=== PATIENT | female | born 1935 | race Asian ===

== ENCOUNTER 2022-06-10 10:10 | Inpatient (IN) | payer MEDICARE ==
[~2022-06-10] VITALS: Ht 162.6 cm; Wt 51.0 kg
[2022-06-10] MEDS ORDERED: DEXAMETHASONE SOD PHOS 4 MG/ML VIAL IVP ONE (10:15)
[2022-06-10] MEDS ORDERED: ALBUTEROL SULFATE 5 MG/ML 20 ML NEB SOLN [BULK] NEB ONE (10:15)
[2022-06-10] MEDS ORDERED: IPRATROPIUM BROMIDE 0.5 MG/2.5 ML NEB SOLUTION NEB ONE (10:15)
[2022-06-10 10:36] LABS: ABG BASE EXCESS -1.9 mmol/L (-2.0-3.0); ABG CARBOXYHEMOGLOBIN 0.1 % (0.0-1.5); ABG HCO3 22.5 mmol/L (22.0-26.0); ABG METHEMOGLOBIN 0.1 % (0.0-1.5); ABG OXYGEN CONTENT 16.6 mL/dL (15.0-23.0); ABG OXYGEN SATURATION 96.8 % (95.0-98.0); ABG OXYHEMOGLOBIN 96.6 % (94.0-100.0); ABG PCO2 51 mmHg (35-45); ABG TOTAL HEMOGLOBIN 12.1 G/dL (12.0-18.0); O2 DEVICE,BLOOD GAS AEROSOL MASK (ROOM AIR); PO2, ARTERIAL BG 99.5 mmHg (71.0-79.0); SITE, BLOOD GAS RT BRACHIAL; SOURCE, BLOOD GAS ARTERIAL
[2022-06-10] MEDS ORDERED: ALBUTEROL SULFATE 2.5 MG/0.5 ML NEB SOLUTION NEB ONE (10:45)
[2022-06-10 11:06] LABS: BASOPHILS % (AUTO) 0.6 % (0.0-2.0); EOSINOPHILS % (AUTO) 0 % (1.0-6.0); HEMATOCRIT 35.7 % (36-46); HEMOGLOBIN 11.4 g/dL (12.0-16.0); LYMPHOCYTES # (AUTO) 0.6 K/uL (1.0-4.8); MEAN CORPUSCULAR HEMOGLOBIN 28.7 pg (26.0-34.0); MEAN CORPUSCULAR VOLUME 89 fL (80-100); MONOCYTES # (AUTO) 0.3 K/uL (0.1-1.0); MONOCYTES % (AUTO) 4.9 % (2.0-9.0); NEUTROPHILS # (AUTO) 5.2 K/uL (1.8-7.7); NEUTROPHILS % (AUTO) 84.5 % (40.0-70.0); PLATELET COUNT (AUTO) 185 K/uL (150-450); RED BLOOD CELL COUNT(AUTO) 3.99 MIL/uL (4.00-5.20); RED CELL DISTRIBUTION WIDTH 14.6 % (11.5-14.5)
[2022-06-10 11:15] LABS: COVID AG,FIA SOURCE NASOPHARYNGEAL
[2022-06-10] MEDS ORDERED: AZITHROMYCIN 500 MG/NS 250 ML IV ONE (11:15)
[2022-06-10] MEDS ORDERED: CefTRIAXone 1 GM/DEXTROSE 50 ML IV ONE (11:15)
[2022-06-10 11:20] LABS: INR 1.1 (0.9-1.1); PROTHROMBIN TIME 11.4 SEC (9.4-11.6)
[2022-06-10 11:42] LABS: INFLUENZA TYPE B NEGATIVE FOR TYPE B (NEGATIVE)
[2022-06-10] MEDS ORDERED: FUROSEMIDE 20 MG/2 ML VIAL IVP ONE (12:45)
[2022-06-10] MEDS ORDERED: HEPARIN SODIUM 25000 UNITS/D5W 250 ML IV PRN (13:15)
[2022-06-10] MEDS ORDERED: HEPARIN SODIUM,PORCINE 5,000 UNITS/ML VIAL IVP PRN ×2 (13:15)
[2022-06-10 13:58] LABS: ABG BASE EXCESS -8.3 mmol/L (-2.0-3.0); ABG CARBOXYHEMOGLOBIN 0.1 % (0.0-1.5); ABG HCO3 18.2 mmol/L (22.0-26.0); ABG OXYGEN CONTENT 15.1 mL/dL (15.0-23.0); ABG OXYHEMOGLOBIN 89.9 % (94.0-100.0); ABG PCO2 36 mmHg (35-45); ABG PH 7.311 (7.35-7.450); ABG TOTAL HEMOGLOBIN 11.9 G/dL (12.0-18.0); PO2, ARTERIAL BG 62.9 mmHg (71.0-79.0); SOURCE, BLOOD GAS ARTERIAL
[2022-06-10 13:59] LABS: ABG A-A DIFF O2 325.3 mmHg (10-20.0); O2 DEVICE,BLOOD GAS HFNC (ROOM AIR); SITE, BLOOD GAS LFT BRACHIAL
[2022-06-10] MEDS ORDERED: ACETAMINOPHEN 325 MG TABLET PO PRN ×2 (14:00→15:15)
[2022-06-10] MEDS ORDERED: 0.9% SODIUM CHLORIDE 10 ML SYRINGE IVP PRN (14:00)
[2022-06-10 14:24] LABS: CALCIUM, TOTAL 9.9 mg/dL (8.8-10.5); CREATININE 2.7 mg/dL (0.60-1.30); POTASSIUM 4.3 mmol/L (3.5-5.1)
[2022-06-10 14:30] LABS: ALBUMIN 3.4 g/dL (3.4-5.0); TOTAL PROTEIN, SERUM 7.8 g/dL (6.4-8.2)
[2022-06-10 14:31] LABS: BILIRUBIN,TOTAL 0.2 mg/dL (0.1-1.0)
[2022-06-10 14:34] LABS: INFLUENZA TYPE A POSITIVE FOR TYPE A (NEGATIVE)
[2022-06-10 15:06] LABS: MAGNESIUM 2.3 mg/dL (1.80-2.40); PHOSPHORUS 5.4 mg/dL (2.5-4.9)
[2022-06-10] MEDS ORDERED: BISACODYL 10 MG RECTAL RECTAL SUPPOSITORY PR PRN (15:15)
[2022-06-10] MEDS ORDERED: ALBUTEROL SULFATE 2.5 MG/0.5 ML NEB SOLUTION NEB PRN (15:15)
[2022-06-10] MEDS ORDERED: ONDANSETRON HCL 4 MG/2 ML VIAL IVP PRN (15:15)
[2022-06-10 16:24] LABS: APPEARANCE,URINE HAZY (CLEAR); BILIRUBIN,URINE NEGATIVE (NEGATIVE); GLUCOSE, URINE (UA) NEGATIVE (NEGATIVE); LEUKOCYTE ESTERASE ,URINE LARGE (NEGATIVE); NITRATE,URINE NEGATIVE (NEGATIVE); OCCULT BLOOD,URINE NEGATIVE (NEGATIVE); PH,URINE 7.5 (5.0-8.0); PROTEIN,URINE 30-70 mg/dL (NEGATIVE); SPECIFIC GRAVITIY, URINE 1.014 (1.003-1.030); UROBILINOGEN,URINE <=1.0 mg/dL (<=1.0)
[2022-06-10 16:33] LABS: BACTERIA,URINE Many /HPF (None Seen); RBC,URINE 0-2 /HPF (0-2); SQUAMOUS EPITHELIAL CELL,UR Few /LPF (None Seen)
[2022-06-10] MEDS: OSELTAMIVIR PHOSPHATE 30 MG CAPSULE PO SCH (21:27)
[2022-06-11] MEDS ORDERED: DILTIAZEM HCL 5 MG/ML 5 ML VIAL IVP ONE (04:15)
[2022-06-11 05:44] LABS: BASOPHILS % (AUTO) 0.2 % (0.0-2.0); EOSINOPHILS % (AUTO) 0 % (1.0-6.0); HEMATOCRIT 37.8 % (36-46); HEMOGLOBIN 12.3 g/dL (12.0-16.0); LYMPHOCYTES # (AUTO) 1.5 K/uL (1.0-4.8); LYMPHOCYTES % (AUTO) 10.3 % (22.0-44.0); MEAN CORPUSCULAR HEMOGLOBIN 28.9 pg (26.0-34.0); MEAN CORPUSCULAR HGB CONC 32.5 G/dL (31.0-37.0); MEAN CORPUSCULAR VOLUME 89 fL (80-100); MONOCYTES # (AUTO) 1.1 K/uL (0.1-1.0); MONOCYTES % (AUTO) 7.5 % (2.0-9.0); NEUTROPHILS # (AUTO) 11.9 K/uL (1.8-7.7); PLATELET COUNT (AUTO) 181 K/uL (150-450); RED BLOOD CELL COUNT(AUTO) 4.24 MIL/uL (4.00-5.20); RED CELL DISTRIBUTION WIDTH 14.8 % (11.5-14.5)
[2022-06-11] MEDS ORDERED: IPRATROPIUM BROMIDE 0.5 MG/2.5 ML NEB SOLUTION NEB ONE (05:45)
[2022-06-11] MEDS ORDERED: ALBUTEROL SULFATE 2.5 MG/0.5 ML NEB SOLUTION NEB ONE (05:45)
[2022-06-11 05:58] LABS: ALBUMIN 3.4 g/dL (3.4-5.0); BILIRUBIN,TOTAL 0.4 mg/dL (0.1-1.0); CALCIUM, TOTAL 9.7 mg/dL (8.8-10.5); CREATININE 2.62 mg/dL (0.60-1.30); TOTAL PROTEIN, SERUM 8.1 g/dL (6.4-8.2)
[2022-06-11] MEDS: OSELTAMIVIR PHOSPHATE 30 MG CAPSULE PO SCH ×2 (09:00→21:00)
[2022-06-11] MEDS: PANTOPRAZOLE SODIUM 40 MG/VIAL IVP SCH (10:31)
[2022-06-11] MEDS: CefTRIAXone 1 GM/DEXTROSE 50 ML IV SCH (11:32)
[2022-06-11] MEDS: AZITHROMYCIN 500 MG/NS 250 ML IV SCH (12:56)
[2022-06-11 16:00] VITALS: BP 107/57
[2022-06-11 16:19] VITALS: BP 107/57
[2022-06-11 20:53] VITALS: BP 121/69
[2022-06-12] VITALS (7 sets, daily range): BP systolic 111–151; BP diastolic 64–82
[2022-06-12 04:42] LABS: GLUCOMETER DEV NAME(LOC) 5N.1C; GLUCOSE,POINT OF CARE 105 MG/DL (70-110)
[2022-06-12] MEDS: DEXTROSE 50%-WATER 25 GM/50 ML SYRINGE IVP PRN (06:09)
[2022-06-12] MEDS: PANTOPRAZOLE SODIUM 40 MG/VIAL IVP SCH (08:58)
[2022-06-12] MEDS: OSELTAMIVIR PHOSPHATE 30 MG CAPSULE PO SCH ×2 (09:00→21:00)
[2022-06-12] MEDS: CefTRIAXone 1 GM/DEXTROSE 50 ML IV SCH (11:30)
[2022-06-12] MEDS: AZITHROMYCIN 500 MG/NS 250 ML IV SCH (12:56)
[2022-06-12] MEDS: HEPARIN SODIUM,PORCINE 5,000 UNITS/ML VIAL SQ SCH ×2 (16:00→23:16)
[2022-06-12 21:11] LABS: GLUCOMETER DEV NAME(LOC) 5N.1C; GLUCOSE,POINT OF CARE 102 MG/DL (70-110)
[2022-06-12 21:11] LABS: GLUCOMETER DEV NAME(LOC) 5N.1C; GLUCOSE,POINT OF CARE 75 MG/DL (70-110)
[2022-06-12 21:11] LABS: GLUCOMETER DEV NAME(LOC) 5N.1C; GLUCOSE,POINT OF CARE 65 MG/DL (70-110)
[2022-06-12 21:11] LABS: GLUCOMETER DEV NAME(LOC) 5N.1C; GLUCOSE,POINT OF CARE 83 MG/DL (70-110)
[2022-06-13 05:00] VITALS: BP 137/52
[2022-06-13 06:38] LABS: BASOPHILS % (AUTO) 0.1 % (0.0-2.0); EOSINOPHILS % (AUTO) 0 % (1.0-6.0); HEMATOCRIT 33.7 % (36-46); HEMOGLOBIN 11.1 g/dL (12.0-16.0); LYMPHOCYTES # (AUTO) 0.5 K/uL (1.0-4.8); LYMPHOCYTES % (AUTO) 4.7 % (22.0-44.0); MEAN CORPUSCULAR HEMOGLOBIN 29.6 pg (26.0-34.0); MEAN CORPUSCULAR VOLUME 90 fL (80-100); MONOCYTES # (AUTO) 0.5 K/uL (0.1-1.0); MONOCYTES % (AUTO) 4.5 % (2.0-9.0); NEUTROPHILS # (AUTO) 9.9 K/uL (1.8-7.7); RED BLOOD CELL COUNT(AUTO) 3.76 MIL/uL (4.00-5.20); RED CELL DISTRIBUTION WIDTH 14.8 % (11.5-14.5)
[2022-06-13 07:00] LABS: CALCIUM, TOTAL 9.2 mg/dL (8.8-10.5); CREATININE 3.66 mg/dL (0.60-1.30); POTASSIUM 4.9 mmol/L (3.5-5.1)
[2022-06-13 07:37] LABS: NEUTROPHILS % (AUTO) 90.7 % (40.0-70.0)
[2022-06-13 07:38] LABS: PLATELET COUNT (AUTO) 151 K/uL (150-450)
[2022-06-13 08:21] LABS: GLUCOMETER DEV NAME(LOC) 5N.1C; GLUCOSE,POINT OF CARE 77 MG/DL (70-110)
[2022-06-13 08:38] VITALS: BP 126/73
[2022-06-13] MEDS: PANTOPRAZOLE SODIUM 40 MG/VIAL IVP SCH (09:12)
[2022-06-13] MEDS: HEPARIN SODIUM,PORCINE 5,000 UNITS/ML VIAL SQ SCH ×2 (09:13→16:39)
[2022-06-13 11:41] LABS: GLUCOMETER DEV NAME(LOC) 5N.1C; GLUCOSE,POINT OF CARE 74 MG/DL (70-110)
[2022-06-13] MEDS: CARVEDILOL 6.25 MG TABLET PO SCH ×2 (12:22→20:01)
[2022-06-13] MEDS: ATORVASTATIN CALCIUM 20 MG TABLET PO SCH (12:23)
[2022-06-13] MEDS: ASPIRIN 81 MG CHEWABLE TABLET PO SCH (12:23)
[2022-06-13] MEDS: CefTRIAXone 1 GM/DEXTROSE 50 ML IV SCH (12:31)
[2022-06-13] MEDS: OSELTAMIVIR PHOSPHATE 30 MG CAPSULE PO SCH ×2 (12:40→20:01)
[2022-06-13] MEDS: AZITHROMYCIN 500 MG/NS 250 ML IV SCH (13:14)
[2022-06-13 18:06] LABS: GLUCOMETER DEV NAME(LOC) 5N.1C; GLUCOSE,POINT OF CARE 70 MG/DL (70-110)
[2022-06-13 20:23] VITALS: BP 116/61
[2022-06-14] MEDS: HEPARIN SODIUM,PORCINE 5,000 UNITS/ML VIAL SQ SCH ×4 (00:11→23:41)
[2022-06-14 01:11] LABS: GLUCOMETER DEV NAME(LOC) 5N.1C; GLUCOSE,POINT OF CARE 70 MG/DL (70-110)
[2022-06-14] MEDS: DEXTROSE 50%-WATER 25 GM/50 ML SYRINGE IVP PRN (05:12)
[2022-06-14 07:09] VITALS: BP 125/70
[2022-06-14 07:11] LABS: GLUCOMETER DEV NAME(LOC) 5S.1B; GLUCOSE,POINT OF CARE 66 MG/DL (70-110)
[2022-06-14 07:20] VITALS: BP 126/68
[2022-06-14] MEDS: ATORVASTATIN CALCIUM 20 MG TABLET PO SCH (09:03)
[2022-06-14] MEDS: PANTOPRAZOLE SODIUM 40 MG/VIAL IVP SCH (09:03)
[2022-06-14] MEDS: ASPIRIN 81 MG CHEWABLE TABLET PO SCH (09:04)
[2022-06-14] MEDS: CARVEDILOL 6.25 MG TABLET PO SCH ×2 (09:04→20:11)
[2022-06-14] MEDS: OSELTAMIVIR PHOSPHATE 30 MG CAPSULE PO SCH ×2 (09:15→20:11)
[2022-06-14 12:00] VITALS: BP 121/69
[2022-06-14] MEDS: CefTRIAXone 1 GM/DEXTROSE 50 ML IV SCH (12:55)
[2022-06-14] MEDS: AZITHROMYCIN 500 MG/NS 250 ML IV SCH (13:00)
[2022-06-14 15:41] LABS: CALCIUM, TOTAL 9.3 mg/dL (8.8-10.5); CREATININE 3.97 mg/dL (0.60-1.30); POTASSIUM 4.3 mmol/L (3.5-5.1)
[2022-06-14] MEDS ORDERED: DEXTROSE 5%-WATER 1,000 ML IV ONE (16:11)
[2022-06-14 16:45] VITALS: BP 108/70
[2022-06-14] MEDS: DEXTROSE 5%-WATER 1,000 ML IV SCH (17:31)
[2022-06-14 19:31] LABS: GLUCOMETER DEV NAME(LOC) 5N.1C; GLUCOSE,POINT OF CARE 114 MG/DL (70-110)
[2022-06-14 19:31] LABS: GLUCOMETER DEV NAME(LOC) 5N.1C; GLUCOSE,POINT OF CARE 81 MG/DL (70-110)
[2022-06-14 19:45] VITALS: BP 127/52
[2022-06-14 19:46] LABS: GLUCOMETER DEV NAME(LOC) 5N.1C; GLUCOSE,POINT OF CARE 121 MG/DL (70-110)
[2022-06-14] MEDS: INSULIN LISPRO 100 UNITS/ML SQ PRN (20:19)
[2022-06-15 00:29] VITALS: BP 105/66
[2022-06-15] MEDS: DEXTROSE 5%-WATER 1,000 ML IV SCH ×2 (05:01→22:17)
[2022-06-15 05:24] VITALS: BP 120/70
[2022-06-15 05:46] LABS: BASOPHILS % (AUTO) 0.6 % (0.0-2.0); HEMATOCRIT 33.3 % (36-46); HEMOGLOBIN 10.9 g/dL (12.0-16.0); LYMPHOCYTES # (AUTO) 0.8 K/uL (1.0-4.8); LYMPHOCYTES % (AUTO) 11.3 % (22.0-44.0); MEAN CORPUSCULAR HEMOGLOBIN 29.2 pg (26.0-34.0); MEAN CORPUSCULAR HGB CONC 32.8 G/dL (31.0-37.0); MEAN CORPUSCULAR VOLUME 89 fL (80-100); MONOCYTES # (AUTO) 0.6 K/uL (0.1-1.0); MONOCYTES % (AUTO) 8.7 % (2.0-9.0); NEUTROPHILS # (AUTO) 5.5 K/uL (1.8-7.7); NEUTROPHILS % (AUTO) 78.4 % (40.0-70.0); PLATELET COUNT (AUTO) 111 K/uL (150-450); RED BLOOD CELL COUNT(AUTO) 3.74 MIL/uL (4.00-5.20); RED CELL DISTRIBUTION WIDTH 14.1 % (11.5-14.5)
[2022-06-15 05:51] LABS: GLUCOMETER DEV NAME(LOC) 5N.1C; GLUCOSE,POINT OF CARE 165 MG/DL (70-110)
[2022-06-15 06:08] LABS: ALBUMIN 2.5 g/dL (3.4-5.0); BILIRUBIN,TOTAL 0.3 mg/dL (0.1-1.0); CALCIUM, TOTAL 9.1 mg/dL (8.8-10.5); CREATININE 3.9 mg/dL (0.60-1.30); POTASSIUM 3.8 mmol/L (3.5-5.1); TOTAL PROTEIN, SERUM 6.6 g/dL (6.4-8.2)
[2022-06-15] MEDS: INSULIN LISPRO 100 UNITS/ML SQ PRN ×2 (06:24→12:47)
[2022-06-15] MEDS ORDERED: ACETAMINOPHEN 325 MG TABLET NG PRN (08:34)
[2022-06-15] MEDS ORDERED: OSELTAMIVIR PHOSPHATE 30 MG CAPSULE NG SCH (08:36)
[2022-06-15 08:45] VITALS: BP 102/58
[2022-06-15] MEDS: HEPARIN SODIUM,PORCINE 5,000 UNITS/ML VIAL SQ SCH ×2 (08:45→17:10)
[2022-06-15] MEDS: PANTOPRAZOLE SODIUM 40 MG/VIAL IVP SCH (08:45)
[2022-06-15] MEDS: CARVEDILOL 6.25 MG TABLET NG SCH ×2 (08:46→22:16)
[2022-06-15] MEDS: ASPIRIN 81 MG CHEWABLE TABLET NG SCH (08:46)
[2022-06-15] MEDS: ATORVASTATIN CALCIUM 20 MG TABLET NG SCH (08:47)
[2022-06-15 10:12] LABS: ABG BASE EXCESS -2.7 mmol/L (-2.0-3.0); ABG CARBOXYHEMOGLOBIN 0.2 % (0.0-1.5); ABG HCO3 22.6 mmol/L (22.0-26.0); ABG METHEMOGLOBIN 0.3 % (0.0-1.5); ABG OXYGEN CONTENT 14.8 mL/dL (15.0-23.0); ABG OXYGEN SATURATION 97.1 % (95.0-98.0); ABG OXYHEMOGLOBIN 96.6 % (94.0-100.0); ABG PCO2 37 mmHg (35-45); ABG TOTAL HEMOGLOBIN 10.8 G/dL (12.0-18.0); PO2, ARTERIAL BG 99.6 mmHg (71.0-79.0); SOURCE, BLOOD GAS ARTERIAL
[2022-06-15 10:13] LABS: ABG A-A DIFF O2 71.6 mmHg (10-20.0); O2 DEVICE,BLOOD GAS BIPAP (ROOM AIR); SITE, BLOOD GAS LFT BRACHIAL
[2022-06-15 10:14] LABS: INSPIRATORY TIME, BG 0.9 SEC; SPONTANEOUS VT, BG 256 ml
[2022-06-15] MEDS: CefTRIAXone 1 GM/DEXTROSE 50 ML IV SCH (12:38)
[2022-06-15] MEDS: AZITHROMYCIN 500 MG/NS 250 ML IV SCH (12:38)
[2022-06-15 16:15] VITALS: BP 113/59
[2022-06-15 20:00] VITALS: BP 118/59
[2022-06-15 23:51] LABS: GLUCOMETER DEV NAME(LOC) 5N.1C; GLUCOSE,POINT OF CARE 142 MG/DL (70-110)
[2022-06-15 23:51] LABS: GLUCOMETER DEV NAME(LOC) 5N.1C; GLUCOSE,POINT OF CARE 102 MG/DL (70-110)
[2022-06-16] VITALS (7 sets, daily range): BP systolic 95–122; BP diastolic 52–69
[2022-06-16] MEDS: HEPARIN SODIUM,PORCINE 5,000 UNITS/ML VIAL SQ SCH ×3 (00:31→15:11)
[2022-06-16] MEDS: INSULIN LISPRO 100 UNITS/ML SQ PRN (00:57)
[2022-06-16 04:36] LABS: GLUCOMETER DEV NAME(LOC) 5N.1C; GLUCOSE,POINT OF CARE 162 MG/DL (70-110)
[2022-06-16 06:01] LABS: BASOPHILS % (AUTO) 0.3 % (0.0-2.0); HEMATOCRIT 30.1 % (36-46); LYMPHOCYTES # (AUTO) 0.7 K/uL (1.0-4.8); LYMPHOCYTES % (AUTO) 10.7 % (22.0-44.0); MEAN CORPUSCULAR HEMOGLOBIN 29.3 pg (26.0-34.0); MEAN CORPUSCULAR HGB CONC 33.2 G/dL (31.0-37.0); MEAN CORPUSCULAR VOLUME 88 fL (80-100); MONOCYTES # (AUTO) 0.6 K/uL (0.1-1.0); NEUTROPHILS # (AUTO) 5.3 K/uL (1.8-7.7); PLATELET COUNT (AUTO) 114 K/uL (150-450); RED BLOOD CELL COUNT(AUTO) 3.41 MIL/uL (4.00-5.20); RED CELL DISTRIBUTION WIDTH 13.8 % (11.5-14.5)
[2022-06-16 06:17] LABS: ALBUMIN 2.2 g/dL (3.4-5.0); BILIRUBIN,TOTAL 0.2 mg/dL (0.1-1.0); CALCIUM, TOTAL 8.6 mg/dL (8.8-10.5); CREATININE 3.6 mg/dL (0.60-1.30); POTASSIUM 3.5 mmol/L (3.5-5.1); TOTAL PROTEIN, SERUM 6.1 g/dL (6.4-8.2)
[2022-06-16] MEDS: PANTOPRAZOLE SODIUM 40 MG/VIAL IVP SCH (09:33)
[2022-06-16] MEDS: ATORVASTATIN CALCIUM 20 MG TABLET NG SCH (09:34)
[2022-06-16] MEDS: ASPIRIN 81 MG CHEWABLE TABLET NG SCH (09:34)
[2022-06-16] MEDS: CARVEDILOL 6.25 MG TABLET NG SCH ×2 (09:34→21:09)
[2022-06-16] MEDS: CefTRIAXone 1 GM/DEXTROSE 50 ML IV SCH (11:14)
[2022-06-16] MEDS: DEXTROSE 5%-WATER 1,000 ML IV SCH ×2 (12:22→22:35)
[2022-06-16] MEDS: AZITHROMYCIN 500 MG/NS 250 ML IV SCH (12:27)
[2022-06-16 18:07] LABS: GLUCOMETER DEV NAME(LOC) 5S.1B; GLUCOSE,POINT OF CARE 159 MG/DL (70-110)
[2022-06-16 18:07] LABS: GLUCOMETER DEV NAME(LOC) 5S.1B; GLUCOSE,POINT OF CARE 131 MG/DL (70-110)
[2022-06-16 19:41] LABS: GLUCOMETER DEV NAME(LOC) 5N.1C; GLUCOSE,POINT OF CARE 140 MG/DL (70-110)
[2022-06-17 00:11] VITALS: BP 114/56
[2022-06-17 05:51] VITALS: BP 142/62
[2022-06-17] MEDS: DEXTROSE 5%-WATER 1,000 ML IV SCH (05:57)
[2022-06-17 08:12] VITALS: BP 108/54
[2022-06-17] MEDS: HEPARIN SODIUM,PORCINE 5,000 UNITS/ML VIAL SQ SCH ×4 (10:39→22:49)
[2022-06-17] MEDS: PANTOPRAZOLE SODIUM 40 MG/VIAL IVP SCH (10:40)
[2022-06-17] MEDS: ATORVASTATIN CALCIUM 20 MG TABLET NG SCH (10:41)
[2022-06-17] MEDS: CefTRIAXone 1 GM/DEXTROSE 50 ML IV SCH (10:41)
[2022-06-17] MEDS: ASPIRIN 81 MG CHEWABLE TABLET NG SCH (10:41)
[2022-06-17] MEDS: CARVEDILOL 6.25 MG TABLET NG SCH ×2 (10:41→21:09)
[2022-06-17 12:16] LABS: GLUCOMETER DEV NAME(LOC) 5N.1C; GLUCOSE,POINT OF CARE 104 MG/DL (70-110)
[2022-06-17] MEDS: AZITHROMYCIN 500 MG/NS 250 ML IV SCH (13:07)
[2022-06-17 15:29] VITALS: BP 108/63
[2022-06-17 19:16] LABS: GLUCOMETER DEV NAME(LOC) 5N.1C; GLUCOSE,POINT OF CARE 97 MG/DL (70-110)
[2022-06-17 20:33] VITALS: BP 122/54
[2022-06-17 21:36] LABS: GLUCOMETER DEV NAME(LOC) 5S.1B; GLUCOSE,POINT OF CARE 122 MG/DL (70-110)
[2022-06-18 00:40] VITALS: BP 109/50
[2022-06-18] MEDS: DEXTROSE 5%-WATER 1,000 ML IV SCH (01:14)
[2022-06-18 06:23] VITALS: BP 106/59
[2022-06-18] MEDS: ATORVASTATIN CALCIUM 20 MG TABLET NG SCH (09:08)
[2022-06-18] MEDS: CARVEDILOL 6.25 MG TABLET NG SCH (09:08)
[2022-06-18] MEDS: ASPIRIN 81 MG CHEWABLE TABLET NG SCH (09:08)
[2022-06-18] MEDS: HEPARIN SODIUM,PORCINE 5,000 UNITS/ML VIAL SQ SCH (09:09)
[2022-06-18] MEDS: PANTOPRAZOLE SODIUM 40 MG/VIAL IVP SCH (09:09)
[2022-06-18 09:30] VITALS: BP 106/67
[2022-06-18] MEDS: CefTRIAXone 1 GM/DEXTROSE 50 ML IV SCH (11:04)
[2022-06-18 11:12] VITALS: BP 122/58
[2022-06-18 11:36] LABS: GLUCOMETER DEV NAME(LOC) 5S.1B; GLUCOSE,POINT OF CARE 125 MG/DL (70-110)
[2022-06-18] MEDS: AZITHROMYCIN 500 MG/NS 250 ML IV SCH (12:15)
[2022-06-18 14:06] LABS: GLUCOMETER DEV NAME(LOC) 5N.1C; GLUCOSE,POINT OF CARE 121 MG/DL (70-110)
[2022-06-18 16:04] VITALS: BP 110/58
[2022-06-19 00:21] LABS: GLUCOMETER DEV NAME(LOC) 5N.1C; GLUCOSE,POINT OF CARE 122 MG/DL (70-110)
== END 2022-06-18 19:35 | DRG 871 ==
LOC: EMS 10:11 → AHU 15:50 → 5N 06-11 14:48
PROVIDERS: ADMIT Internal Medicine; ATTEND Internal Medicine
PROC: 5A0935A Assistance with Respiratory Ventilation, Less than 24 Consecutive Hours, High Flow/Velocity Cannula (ICD-10-PCS; 2022-06-10)
PROC: 5A09457 Assistance with Respiratory Ventilation, 24-96 Consecutive Hours, Continuous Positive Airway Pressure (ICD-10-PCS; principal; 2022-06-11)
PROC: 5A0935A Assistance with Respiratory Ventilation, Less than 24 Consecutive Hours, High Flow/Velocity Cannula (ICD-10-PCS; 2022-06-11)
PROC: 5A09357 Assistance with Respiratory Ventilation, Less than 24 Consecutive Hours, Continuous Positive Airway Pressure (ICD-10-PCS; 2022-06-14)
DX: A41.9 Sepsis, unspecified organism (principal); E43 Unspecified severe protein-calorie malnutrition; J10.00 Influenza due to other identified influenza virus with unspecified type of pneumonia; J96.01 Acute respiratory failure with hypoxia; G93.41 Metabolic encephalopathy; I21.4 Non-ST elevation (NSTEMI) myocardial infarction; I50.23 Acute on chronic systolic (congestive) heart failure; I13.0 Hypertensive heart and chronic kidney disease with heart failure and stage 1 through stage 4 chronic kidney disease, or unspecified chronic kidney disease; N17.9 Acute kidney failure, unspecified; C90.00 Multiple myeloma not having achieved remission; N18.4 Chronic kidney disease, stage 4 (severe); E87.0 Hyperosmolality and hypernatremia; J90 Pleural effusion, not elsewhere classified; J98.11 Atelectasis; Z68.1 Body mass index [BMI] 19.9 or less, adult; Z20.822 Contact with and (suspected) exposure to COVID-19; E11.22 Type 2 diabetes mellitus with diabetic chronic kidney disease; E78.5 Hyperlipidemia, unspecified; I48.0 Paroxysmal atrial fibrillation; R13.10 Dysphagia, unspecified; I34.0 Nonrheumatic mitral (valve) insufficiency; F03.90 Unspecified dementia, unspecified severity, without behavioral disturbance, psychotic disturbance, mood disturbance, and anxiety; R62.7 Adult failure to thrive; Z86.73 Personal history of transient ischemic attack (TIA), and cerebral infarction without residual deficits; Z95.0 Presence of cardiac pacemaker; Z79.82 Long term (current) use of aspirin
CPT/HCPCS: 36600; 71045; 71250; 74018; 80048; 80053; 81001; 82550; 82805; 82962; 83605; 83735; 83880; 84100; 84484; 85025; 85610; 85730; 87040; 87086; 87186; 87804; 93005; 93306; 94644; 94660; 97163; 99291; C9113; G0378; J0456; J0696; J1100; J1644; J1940; J7060; Q9967; 36415-L1; 36415-TC; J7613